=== PATIENT | female | born 1965 | race Two or more races ===

== ENCOUNTER 2020-12-30 08:45 | Outpatient (CLI) | payer OTHER ==
[2021-01-05] MEDS ORDERED: SYNTHROID88 MCG PO (10:48)
== END 2020-12-30 08:54 | disposition home or self-care (01) ==
LOC: RAD 08:45
PROVIDERS: ATTEND Surgery
DX: I10 Essential (primary) hypertension (principal)

== ENCOUNTER 2021-01-06 06:24 | Day surgery (SDC) | payer OTHER ==
[~2021-01-06 06:24] MED LIST: SYNTHROID88 MCG PO
== END 2021-01-06 17:35 | disposition home or self-care (01) ==
LOC: CIR.AMB 06:24
PROVIDERS: ATTEND Surgery
DX: D05.01 Lobular carcinoma in situ of right breast (principal); D05.02 Lobular carcinoma in situ of left breast; C77.3 Secondary and unspecified malignant neoplasm of axilla and upper limb lymph nodes; Z90.13 Acquired absence of bilateral breasts and nipples
CPT/HCPCS: 19357; 38525; 38792; 19307; 19303; 14301; 14302 ×2; C1789

== ENCOUNTER 2021-06-02 10:34 | Outpatient (CLI) | payer OTHER ==
[2021-06-06] MEDS ORDERED: ANASTROZOLE1 MG PO (13:23)
== END 2021-06-02 10:39 | disposition home or self-care (01) ==
LOC: RAD 10:34
PROVIDERS: ATTEND Plastic Surgery
DX: Z90.13 Acquired absence of bilateral breasts and nipples (principal)

== ENCOUNTER 2021-06-09 06:11 | Day surgery (SDC) | payer OTHER ==
[~2021-06-09 06:11] MED LIST changes: +ANASTROZOLE1 MG PO
== END 2021-06-09 11:35 | disposition home or self-care (01) ==
LOC: CIR.AMB 06:11
PROVIDERS: ATTEND Plastic Surgery
DX: Z90.13 Acquired absence of bilateral breasts and nipples (principal); Z92.21 Personal history of antineoplastic chemotherapy; Z85.3 Personal history of malignant neoplasm of breast